=== PATIENT | male | born 1960 | race Caucasian/White ===

== ENCOUNTER → 2025-05-07 09:52 | Outpatient (REF) | payer OTHER, SELFPAY | LOC: RAD 09:52 | PROVIDERS: FAMILY PHYSICIAN Family Medicine | DX: R22.32 Localized swelling, mass and lump, left upper limb (principal) | CPT/HCPCS: 73110 ==

== ENCOUNTER → 2025-05-09 13:37 | Outpatient (REF) | payer OTHER, SELFPAY | LOC: RAD 13:37 | PROVIDERS: FAMILY PHYSICIAN Family Medicine | DX: Z18.10 Retained metal fragments, unspecified (principal) | CPT/HCPCS: 70030 ==

== ENCOUNTER → 2025-05-15 09:54 | Outpatient (REF) | payer OTHER, SELFPAY | LOC: MRI 3T 09:54 | PROVIDERS: FAMILY PHYSICIAN Family Medicine | DX: M25.532 Pain in left wrist (principal); R22.32 Localized swelling, mass and lump, left upper limb | CPT/HCPCS: 73221 ==